=== PATIENT | male | born 1940 | race Caucasian/White ===

== ENCOUNTER → 2019-01-16 07:51 | Outpatient (CLI) | payer MEDICARE, BC ==
[2015-04-25 13:13] VITALS: BMI 23.6
[~2019-01-16 07:51] MED LIST: ASPIRIN81 MG PO; BENADRYL25 MG PO; CALAN SR240 MG PO; FISH OIL 1,2001 CAP PO; ISOSORBIDE MONO30 M1 PO; LIVALO2 MG PO; METOPROLOL TART50 MG PO; MOBIC7.5 MG PO; OMNICEF300 MG PO; TYLENOL W/CODEI1 TAB PO; XANAX0.25 MG PO
== END | disposition home or self-care (01) ==
LOC: D.HCCARDIO 07:51
PROVIDERS: ATTEND Internal Medicine Cardiovascular Disease
DX: I25.10 Atherosclerotic heart disease of native coronary artery without angina pectoris (principal)

== ENCOUNTER 2019-01-17 08:50 | Emergency (ER) | payer MEDICARE, BC ==
[~2019-01-17] VITALS: Ht 175.3 cm; Wt 76.8 kg
[~2019-01-17 08:50] MED LIST changes: -OMNICEF300 MG PO; -TYLENOL W/CODEI1 TAB PO
[2019-01-17 08:52] VITALS: Ht 175.3 cm; Wt 76.8 kg
[2019-01-17] MEDS ORDERED: TYLENOL W/CODEI1 TAB PO (10:07)
[2019-01-17] MEDS ORDERED: OMNICEF300 MG PO (10:07)
[2019-01-17 10:11] VITALS: BP 159/85
== END 2019-01-17 11:02 | disposition home or self-care (01) ==
LOC: D.ER 08:50
DX: S62.631B Displaced fracture of distal phalanx of left index finger, initial encounter for open fracture (principal); W26.8XXA Contact with other sharp object(s), not elsewhere classified, initial encounter; Y93.H2 Activity, gardening and landscaping; Y92.017 Garden or yard in single-family (private) house as the place of occurrence of the external cause

== ENCOUNTER 2019-01-27 10:28 | Emergency (ER) | payer MEDICARE, BC ==
[~2019-01-27] VITALS: Ht 175.3 cm; Wt 77.3 kg
[~2019-01-27 10:28] MED LIST changes: +OMNICEF300 MG PO; +TYLENOL W/CODEI1 TAB PO
[2019-01-27 10:45] VITALS: Ht 175.3 cm; Wt 77.3 kg
[2019-01-27] MEDS ORDERED: NORVASC10 MG PO (12:23)
[2019-01-27] MEDS ORDERED: KEFLEX500 MG PO (12:23)
[2019-01-27 12:36] VITALS: BP 161/80
== END 2019-01-27 12:39 | disposition home or self-care (01) ==
LOC: D.ER 10:28
DX: S61.201A Unspecified open wound of left index finger without damage to nail, initial encounter (principal); X58.XXXA Exposure to other specified factors, initial encounter; Y93.89 Activity, other specified; Y92.89 Other specified places as the place of occurrence of the external cause; I10 Essential (primary) hypertension

== ENCOUNTER → 2019-02-13 09:52 | Outpatient (CLI) | payer MEDICARE, BC ==
[2019-01-27 10:45] VITALS: BMI 25.1
[~2019-02-13 09:52] MED LIST changes: +KEFLEX500 MG PO; +NORVASC10 MG PO
== END | disposition home or self-care (01) ==
LOC: D.RAD 09:52
PROVIDERS: ATTEND Family Medicine
DX: S62.601A Fracture of unspecified phalanx of left index finger, initial encounter for closed fracture (principal); X58.XXXA Exposure to other specified factors, initial encounter

== ENCOUNTER → 2019-07-25 07:52 | Outpatient (CLI) | payer MEDICARE, BC ==
[2019-01-27 10:45] VITALS: BMI 25.1
== END | disposition home or self-care (01) ==
LOC: D.CT 07:52
PROVIDERS: ATTEND Family Medicine
DX: R10.30 Lower abdominal pain, unspecified (principal)

== ENCOUNTER → 2020-02-13 08:29 | Outpatient (CLI) | payer MEDICARE, BC ==
[2019-01-27 10:45] VITALS: BMI 25.1
== END | disposition home or self-care (01) ==
LOC: D.HCCECHO 08:29
PROVIDERS: ATTEND Internal Medicine Cardiovascular Disease
DX: I25.10 Atherosclerotic heart disease of native coronary artery without angina pectoris (principal)